=== PATIENT | male | born 1960 | race Caucasian/White ===

== ENCOUNTER 2021-05-03 02:02 | Outpatient (CLI) | payer OTHER, SELFPAY ==
--- NOTE | 2021-05-03 | DI.MRI_ITS ---
Exam(s) MR BRAIN WO EXAM: MR BRAIN WO CLINICAL HISTORY: [id number], ? SEIZURES TECHNIQUE: Multiplanar multisequence MRI of the brain was performed. COMPARISON: No exams were available for comparison FINDINGS: CEREBRAL PARENCHYMA: There is no evidence of intracranial hemorrhage, mass effect, or shift of midline structures. There are no extra-axial fluid collections. Ventricles are not enlarged or shifted. There is no significant focal signal abnormality in the cerebellar hemispheres nor within the jet, m idbrain, and thalami. There are few tiny foci of white matter signal abnormality, largest of these measuring 3 millimeters located in the frontal lobe. There is no significant focal signal abnormality evident on diffusion imaging to suggest acute ischem ic event. PITUITARY GLAND: No mass nor parasellar abnormality. No obvious abnormality in the cavernous sinuses. FLOW VOIDS: The expected flow void are noted. No evidence of obvious aneurysm nor obvious vascular ma lformation. PARANASAL SINUSES: The visualized paranasal sinuses appear unremarkable. 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 ORBITS: No obvious findings. IMPRESSION: Few small nonspecific white matter foci seen bilaterally, largest measuring (left side). No evidence of acute ischemic event. No intracranial hemorrhage. DATA REPOSITORY:
== END 2021-05-03 02:22 ==
DX: R41.82 Altered mental status, unspecified (principal); R41.89 Other symptoms and signs involving cognitive functions and awareness; R90.82 White matter disease, unspecified
CPT/HCPCS: 70551